=== PATIENT | female | born 1995 | race Caucasian/White ===

== ENCOUNTER 2018-09-09 18:13 | Emergency (ER) | payer OTHER, MEDICAID ==
[~2018-09-09] VITALS: Ht 162.6 cm; Wt 60.0 kg
[2018-09-09] MEDS ORDERED: KETOROLAC 30MG/ML VIAL IV STA (19:26)
[2018-09-09 19:27] LABS: CLARITY URINE CLEAR (CLEAR); COLOR URINE YELLOW (YELLOW); KETONES URINE TRACE (NEGATIVE); LEUKOCYTE ESTERASE URINE NEGATIVE (NEGATIVE); NITRITE URINE NEGATIVE (NEGATIVE); OCCULT BLOOD URINE 2+ (NEGATIVE); PROTEIN URINE TRACE (NEGATIVE); SPECIFIC GRAVITY URINE 1.031 (1.005-1.030); UROBILINOGEN URINE 0.2 E.U./dL (0.2-1.0)
[2018-09-09 20:07] LABS: BASOPHILS % 0.6 % (0.0-2.0); EOSINOPHILS % 0.5 % (0.0-5.0); HEMATOCRIT. 40.9 % (36.0-48.0); HEMOGLOBIN. 13.6 g/dL (12.0-16.0); MEAN CORPUSCULAR HEMOGLOBIN 30.1 pg (28.0-32.0); MEAN CORPUSCULAR VOLUME 90.8 fL (81.0-99.0); MEAN PLATELET VOLUME 8.8 fl (7.4-10.4); MONOCYTES % 4.5 % (2.0-8.0); NEUTROPHILS % 81.4 % (40.0-76.0); PLATELET 249 x1000/uL (130-400)
[2018-09-09 20:08] LABS: CHLORIDE 107 mEq/L (98-107)
[2018-09-09] MEDS ORDERED: IOHEXOL-300 100 ML BOTTLE ONE (21:46)
[2018-09-09] MEDS ORDERED: HYDROCODONE/ACETAMINOPHEN 5/325MG TABLET PO ONE (22:15)
[2018-09-09] MEDS ORDERED: BACITRACIN ZINC OINT UDPKT TOP ONE (22:15)
[2018-09-10 01:21] VITALS: BP 122/73
== END 2018-09-10 01:23 | disposition home or self-care (01) ==
LOC: ER 18:13
DX: S20.312A Abrasion of left front wall of thorax, initial encounter (principal); V89.2XXA Person injured in unspecified motor-vehicle accident, traffic, initial encounter; Y93.89 Activity, other specified; Y92.89 Other specified places as the place of occurrence of the external cause; Y99.8 Other external cause status
CPT/HCPCS: 36415; 71260; 72100; 72128; 72131; 80053; 81003; 81025; 85025; 96374; 99284; J1885; Q9967